=== PATIENT | male | born 1985 | race Caucasian/White ===

== ENCOUNTER → 2017-05-08 | Outpatient (CLI) | payer BC, OTHER ==
--- NOTE | 2017-05-08 15:46 | DIAGNOSTIC IMAGING REPORT ---
L-SPINE MIN 4 VIEWS ROUTINE CLINICAL HISTORY: ACUTE BACK PAIN COMPARISON STUDY: No previous studies for comparison. FINDINGS: There are 5 lumbar type vertebral bodies present. There is an S1 spina bifida occulta. No acute fractures are visualized. There is a Schmorl's node the L3 level. IMPRESSION: No fractures or subluxations identified. Electronically signed by: Rogelio Alcala M.D. 05/08/2017 3:45 PM Dictated Date/Time: 05/08/2017 3:44 PM
--- NOTE | 2017-05-08 15:46 | DIAGNOSTIC IMAGING REPORT ---
THORACIC SPINE 3 VIEWS HISTORY: Pain ACUTE BACK PAIN COMPARISON: None. FINDINGS: There is no fracture. No subluxation. Disc spaces are preserved. IMPRESSION: No fracture or subluxation within the thoracic spine. Electronically signed by: Luis Alberto Alonzo M.D. 05/08/2017 3:45 PM Dictated Date/Time: 05/08/2017 3:44 PM
== END | disposition home or self-care (01) ==
LOC: C.RAD1850 15:04
PROVIDERS: ATTEND Nurse Practitioner Adult Health
DX: M54.9 Dorsalgia, unspecified (principal)

== ENCOUNTER 2017-12-26 10:06 | Emergency (ER) | payer OTHER | END 2017-12-26 10:20 | disposition left against medical advice (07) | LOC: C.EDB 10:08 | DX: M25.579 Pain in unspecified ankle and joints of unspecified foot (principal) ==

== ENCOUNTER → 2017-12-26 | Outpatient (CLI) | payer OTHER ==
--- NOTE | 2017-12-26 11:09 | DIAGNOSTIC IMAGING REPORT ---
L ANKLE MIN 3 VIEWS ROUTINE HISTORY: 32 years-old Male LEFT ANKLE PAIN acute left ankle pain without reported trauma COMPARISON: None available TECHNIQUE: 3 views of the left ankle FINDINGS: 2 mm corticated bone fragment is seen adjacent to the medial malleolus. There is mild soft tissue swelling about the ankle, greatest anterolaterally. Small plantar enthesophyte about the calcaneus with mild dorsal spurring of the midfoot. Trace joint effusion. No acute fracture, dislocation or osteochondral defect. IMPRESSION: 1. Mild anterolateral soft tissue swelling and small joint effusion without acute fracture. 2. 2 mm corticated bone fragment adjacent to the medial malleolus suggests remote avulsion fracture or accessory ossicle. The above report was generated using voice recognition software. It may contain grammatical, syntax or spelling errors. Electronically signed by: Pedro Dolan M.D. 12/26/2017 11:07 AM Dictated Date/Time: 12/26/2017 11:06 AM
== END | disposition home or self-care (01) ==
LOC: C.RAD1850 10:43
PROVIDERS: ATTEND Nurse Practitioner
DX: M25.572 Pain in left ankle and joints of left foot (principal); R60.0 Localized edema; M89.9 Disorder of bone, unspecified